=== PATIENT | female | born 1960 | race Caucasian/White ===

== ENCOUNTER 2017-10-04 18:21 | Emergency (ER) | payer MEDICARE, MEDICAID ==
[2017-10-04] MEDS ORDERED: NEO/POLY/HC OTIC SUSP 10 ML BTTL ONE (18:40)
[2017-10-04] MEDS ORDERED: CETIRIZINE HCL 10 MG TAB PO ONE (18:43)
[2017-10-04] MEDS ORDERED: predniSONE 20 MG TAB PO ONE (18:43)
--- NOTE | 2017-10-04 18:45 | ED.PDOC ---
History of Present Illness - General Time Seen by Provider: 10/04/17 18:43 Source: patient Exam Limitations: no limitations - History of Present Illness Initial Comments: the patient is a 56-year-old female presenting with 3-5 days of symptoms of swelling of her ear canals bilaterally. She has mild drainage bilaterally. They are uncomfortable and itchy. She has had issues before. No fever. No real runny nose cough or fever or congestion. No syncope or shortness of breath. No other significant concurrent rashes. She is not a diabetic. Bilateral ear canals are truly almost swollen shut. The external portion does appear significantly like eczema Timing/Duration: 1 week Severity: moderate Improving Factors: nothing Worsening Factors: nothing Associated Symptoms: denies symptoms Home Medications: Ambulatory Orders Neymar/Poly/Hc Otic Susp [Cortisporin Otic Susp] 4 drop BOTH_EARS Q6H #10 days predniSONE [Prednisone] 20 mg PO DAILY #3 tab 10/04/17 Review of Systems - Review of Systems Constitutional: States: no symptoms reported EENTM: States: see HPI Respiratory: States: no symptoms reported Cardiology: States: no symptoms reported Gastrointestinal/Abdominal: States: no symptoms reported Genitourinary: States: no symptoms reported Musculoskeletal: States: see HPI Skin: States: no symptoms reported Neurological: States: no symptoms reported Endocrine: States: no symptoms reported All other Systems: No Change from Baseline Physical Exam - Physical Exam General Appearance: Alert, Comfortable, No apparent distress Eye Exam: bilateral normal Ears, Nose, Throat: normal pharynx, other - hearing is decreased bilaterally secondary to ear canals being swollen almost shut. Minimal clear drainage. I cannot visualize the eardrums. Neck: full range of motion, supple Respiratory: lungs clear, normal breath sounds, no respiratory distress, no accessory muscle use Cardiovascular/Chest: normal peripheral pulses, regular rate, rhythm, no edema Peripheral Pulses: radial,right: 2+, radial,left: 2+, dorsalis pedis,right: 2+, dorsalis pedis,left: 2+ Rectal Exam: deferred Back Exam: no CVA tenderness, no vertebral tenderness Extremity: normal range of motion, no pedal edema, normal capillary refill Neurologic: yeast pumper II-XII nml as tested - hearing is decreased as above, alert, normal mood/affect, oriented x 3 Skin Exam: normal color - with the exception of the changes consistent with eczema of the inner ear Progress - Progress Progress: 10/04/17 18:46 the patient is a 56-year-old female presenting to the emergency room secondary to acute otitis externa of an uncertain source. This is possibly due to eczema versus fungal versus bacterial. The patient will be covered with Cortisporin Otic drops 4 drops to each ear bilaterally3 times daily for 10 days. Ear adeline have been placed and can come out in 3-5 days. The patient will additionally be covered with prednisone 20 mg daily for an additional 3 days. She was given a first dose here. She can additionally take Zyrtec 10 mg nightly for the next 3 weeks. ER warnings were given for any worsening. She should follow up with her primary care doctor next week. Departure - Departure Clinical Impression: Otitis externa, acute Qualifiers: Otitis externa type: unspecified type Laterality: bilateral Qualified Code(s): H60.503 - Unspecified acute noninfective otitis externa, bilateral Disposition: Discharge to Home or Self Care Condition: Fair Instructions: DI for Otitis Externa Diet: regular diet Activity: increase activity as tolerated Referrals: Juvenal Lopez MD [Primary Care Provider] - 1-2 Weeks Prescriptions: Neymar/Poly/Hc Otic Susp [Cortisporin Otic Susp] 4 drop BOTH_EARS Q6H #10 days predniSONE [Prednisone] 20 mg PO DAILY #3 tab Home Medications: Ambulatory Orders Neymar/Poly/Hc Otic Susp [Cortisporin Otic Susp] 4 drop BOTH_EARS Q6H #10 days predniSONE [Prednisone] 20 mg PO DAILY #3 tab 10/04/17 Additional Instructions: the patient is a 56-year-old female presenting to the emergency room secondary to acute otitis externa of an uncertain source. This is possibly due to eczema versus fungal versus bacterial. The patient will be covered with Cortisporin Otic drops 4 drops to each ear bilaterally3 times daily for 10 days. Ear adeline have been placed and can come out in 3-5 days. The patient will additionally be covered with prednisone 20 mg daily for an additional 3 days. She was given a first dose here. She can additionally take Zyrtec 10 mg nightly for the next 3 weeks. ER warnings were given for any worsening. She should follow up with her primary care doctor next week.
[2017-10-04 18:50] VITALS: TEMP 97.7
[2017-10-04 19:21] VITALS: BP 132/78; O2SAT 98
== END 2017-10-04 19:21 | disposition home or self-care (01) ==
LOC: ER 18:21
DX: H60.503 Unspecified acute noninfective otitis externa, bilateral (principal)

== ENCOUNTER 2018-10-02 19:09 | Emergency (ER) | payer MEDICARE, MEDICAID ==
[2018-10-02 19:25] VITALS: BP 153/91; TEMP 100.7; O2SAT 100
[2018-10-02] MEDS ORDERED: NEO/POLY/HC OTIC SUSP 10 ML BTTL ONE (19:28)
[2018-10-02] MEDS ORDERED: NEOMYCIN-BACITRACIN-POLYMYXIN 0.9 GM UD TOP ONE (19:28)
[2018-10-02] MEDS ORDERED: HYDROCOD/APAP 5/325 (ER DISP) #3 TAB PO ONE ×2 (19:40→19:50)
[2018-10-02] MEDS ORDERED: HYDROcodone 5MG/APAP 325MG 1 EA TAB PO ONE (19:40)
[2018-10-02] MEDS ORDERED: AMOXICILLIN & POT CLAVULANATE 875 MG TAB PO ONE ×2 (19:40→19:49)
[2018-10-02] MEDS ORDERED: NEO/POLY/HC OTIC SUSP 10 ML BTTL BOTH_EARS ONE (19:41)
--- NOTE | 2018-10-02 19:44 | ED.PDOC ---
History of Present Illness - General Chief Complaint: ENT Problem Stated Complaint: bilateral ear pain and drainage Time Seen by Provider: 10/02/18 19:42 Source: patient - History of Present Illness Initial Comments: SHE SUFFERS OF CHRONIC EAR INFECTIONS. YESTERDAY THE RIGHT EAR BECAME MORE PAINFUL AND SWOLLEN ASSOCIATED WITH DISCHARGE. PAIN IS AT 7/10. DENIES FEVER. Timing/Duration: gradual EENT Location: ear (R), ear (L) Prearrival Treatment: over the counter meds Improving Factors: nothing Worsening Factors: nothing Associated Symptoms: ear drainage, malaise Allergies/Adverse Reactions: Allergies Eggs or Egg-derived Products Allergy (Verified 10/02/18 19:25) Home Medications: Ambulatory Orders Amoxicillin & Pot Clavulanate [Augmentin Tab] 875 mg PO BID #20 tab 10/02/18 Neymar/Poly/Hc Otic Susp [Cortisporin Otic Susp] 10 ml OTIC Q6HRS #1 bttl 10/02/18 Tramadol HCl 50 mg PO Q6HRS #20 tab 10/02/18 Review of Systems - Review of Systems Constitutional: States: malaise EENTM: States: ear pain, ear discharge Respiratory: States: no symptoms reported Cardiology: States: no symptoms reported Gastrointestinal/Abdominal: States: no symptoms reported Genitourinary: States: no symptoms reported Musculoskeletal: States: no symptoms reported Skin: States: no symptoms reported Neurological: States: no symptoms reported Endocrine: States: no symptoms reported Past Medical History (General) - Patient Medical History Hx Seizures: No Hx Stroke: No Hx Dementia: No Hx Asthma: No Hx of COPD: No Hx Cardiac Disorders: No Hx Congestive Heart Failure: No Hx Pacemaker: No Hx Hypertension: No Hx Thyroid Disease: No Hx Diabetes: No Hx Gastroesophageal Reflux: No Hx Renal Disease: No Hx of HIV: No Surgical History: Hysterectomy - Vaccination History Hx Tetanus, Diphtheria Vaccination: No Hx Influenza Vaccination: No Hx Pneumococcal Vaccination: No - Social History Hx Tobacco Use: Yes Hx Alcohol Use: Yes Hx Substance Use: No Hx Substance Use Treatment: No Hx Depression: No Family Medical History - Family History Mother Family History: Unknown Physical Exam - Physical Exam General Appearance: Alert, Obvious distress, Well Developed, Well Groomed Eye Exam: bilateral normal Ear Exam: bilateral ear: canal normal - SWOLLEN AND WITH DISCHARGE., erythema Nasal Exam: normal inspection Throat Exam: normal mouth inspection Neck: non-tender Cardiovascular/Respiratory: regular rate, rhythm, no M/R/G, normal peripheral pulses Abdominal Exam: non-tender Neurologic: no motor/sensory deficits, alert Skin Exam: normal color Progress - Progress Progress: 10/02/18 19:47 PROCEDURE: PLACEMENT OF EAR WICK ON THE RIGHT EXTERNAL CANAL. A 2 CM WICK WAS LUBRICATED WITH TRIPLE ANTIBIOTIC OINTMENT AND PLACED INSIDE THE RIGHT EAR CANAL WHICH WAS PRACTICALLY SWOLLEN SHUT. THE PATIENT TOLERATED THE PROCEDURE WELL. Departure - Departure Clinical Impression: Diffuse otitis externa, bilateral Qualifiers: Chronicity: acute Qualified Code(s): H60.313 - Diffuse otitis externa, bilateral Time of Disposition: 19:52 Disposition: Discharge to Home or Self Care Condition: Fair Departure Forms: ED Discharge - Pt. Copy, Patient Portal Self Enrollment Instructions: DI for Otitis Externa Diet: resume usual diet Prescriptions: Neymar/Poly/Hc Otic Susp [Cortisporin Otic Susp] 10 ml OTIC Q6HRS #1 bttl Tramadol HCl 50 mg PO Q6HRS #20 tab Amoxicillin & Pot Clavulanate [Augmentin Tab] 875 mg PO BID #20 tab Home Medications: Ambulatory Orders Amoxicillin & Pot Clavulanate [Augmentin Tab] 875 mg PO BID #20 tab 10/02/18 Neymar/Poly/Hc Otic Susp [Cortisporin Otic Susp] 10 ml OTIC Q6HRS #1 bttl 10/02/18 Tramadol HCl 50 mg PO Q6HRS #20 tab 10/02/18
== END 2018-10-02 20:05 | disposition home or self-care (01) ==
LOC: ER 19:09
DX: H60.313 Diffuse otitis externa, bilateral (principal); Z87.891 Personal history of nicotine dependence